=== PATIENT | male | born 1955 | race Caucasian/White ===

== ENCOUNTER 2017-09-10 09:18 | Day surgery (SDC) | payer OTHER ==
[2017-09-10] MEDS ORDERED: LIDOCAINE HCL 1% MPF SOL ONE (09:43)
[2017-09-10] MEDS ORDERED: PROPOFOL 500 MG/50 ML EMU IV ONE (09:43)
[2017-09-10 10:37] VITALS: O2SAT 99
[2017-09-10 10:56] VITALS: BP 134/75; PULSE 58; RESP 18; TEMP 97.4
== END 2017-09-10 11:18 | disposition home or self-care (01) | DRG 951 ==
LOC: SURG 09:18
PROVIDERS: ATTEND Surgery
DX: Z12.11 Encounter for screening for malignant neoplasm of colon (principal); K57.30 Diverticulosis of large intestine without perforation or abscess without bleeding
CPT/HCPCS: J2001; J2704